=== PATIENT | male | born 1975 | race Caucasian/White ===

== ENCOUNTER 2022-04-20 16:38 | Inpatient (IN) | payer OTHER ==
[2022-04-20 19:46] VITALS: BMI 26.7
[2022-04-20] MEDS ORDERED: BENZOCAINE/MENTHOL (CHLORASEPTIC ) LOZENGE MM PRN (20:41)
[2022-04-20] MEDS ORDERED: P-EPHED 60MG/TRIPROLIDI 2.5MG TABLET PO PRN (20:41)
[2022-04-20] MEDS ORDERED: MAG HYDROX/AL HYDROX/SIMETH 30 ML UNIT-DOSE CUP PO PRN (20:41)
[2022-04-20] MEDS ORDERED: LOPERAMIDE HCL 2 MG CAPSULE PO PRN (20:41)
[2022-04-20] MEDS ORDERED: MAGNESIUM HYDROX 2400MG/30ML ORAL SUSPENSION 30 ML CUP PO PRN (20:41)
[2022-04-20] MEDS ORDERED: IBUPROFEN 400 MG TABLET (FP) PO PRN (20:41)
[2022-04-20] MEDS ORDERED: MAGNESIUM CITRATE 300 ML BOTTLE PO PRN (20:41)
[2022-04-20] MEDS ORDERED: NICOTINE POLACRILEX 2 MG GUM BC PRN (20:41)
[2022-04-20] MEDS ORDERED: guaiFENesin 200 MG/10 ML 10 ML UNIT-DOSE CUPS PO PRN (20:41)
[2022-04-20] MEDS ORDERED: ACETAMINOPHEN 325 MG TABLET (FP) PO PRN (20:41)
[2022-04-20] MEDS: THIAMINE HCL 100 MG TABLET (FP) PO SCH (23:11)
[2022-04-20] MEDS ORDERED: TUBERCULIN PPD 5 TU/0.1ML VIAL ID ONE ×2 (23:55→23:56)
[2022-04-21] MEDS ORDERED: methaDONE 80 MG, methaDONE 20 MG PO SCH (10:00)
[2022-04-21] MEDS ORDERED: methaDONE HCL 10 MG TABLET PO SCH (10:00)
[2022-04-21] MEDS: PRENATAL VITAMINS W/ FOLIC ACID TABLET (FP) PO SCH (10:08)
[2022-04-21] MEDS: NICOTINE 10 MG CARTRIDGE (INHALER) IH PRN (10:42)
[2022-04-21 15:25] LABS: HEMOGLOBIN 12.9 GM/dL (11.7-16.9); MCH 28.5 pg (25.7-33.7); MEAN CELL VOLUME 86.3 fl (80-96); MEAN PLT VOLUME 8.4 fl (7.5-11.1); PLATELET COUNT 262 10^3/uL (134-434); RBC 4.52 M/mm3 (4.00-5.60); RDW 14.4 % (11.9-15.9); WHITE BLOOD COUNT 7.3 K/mm3 (4.0-10.0)
[2022-04-21 15:26] LABS: PH,URINE 6.5 (5.0-8.0); URINE APPEARANCE CLEAR; URINE BILIRUBIN NEGATIVE (NEGATIVE); URINE COLOR YELLOW; URINE GLUCOSE (UA) NEGATIVE (NEGATIVE); URINE KETONE NEGATIVE (NEGATIVE); URINE LEUK ESTERASE NEGATIVE (NEGATIVE); URINE NITRITE NEGATIVE (NEGATIVE); URINE PROTEIN NEGATIVE (NEGATIVE); URINE UROBILINOGEN 0.2 mg/dL (0.2-1.0)
[2022-04-21 18:01] LABS: ALBUMIN 3.4 g/dl (3.4-5.0); CALCIUM 8.9 mg/dL (8.5-10.1)
[2022-04-21 18:02] LABS: BLOOD UREA NITROGEN 24.4 mg/dL (7-18)
[2022-04-21 18:06] LABS: TOT PROT 6.3 g/dl (6.4-8.2)
[2022-04-21 18:14] LABS: BILIRUBIN,TOTAL 0.3 mg/dL (0.2-1)
[2022-04-21 18:46] LABS: SYPHILIS W/ RPR CONF NON-REACTIVE (NONREACTIVE)
[2022-04-21] MEDS: THIAMINE HCL 100 MG TABLET (FP) PO SCH (22:29)
[2022-04-22] MEDS ORDERED: methaDONE HCL 10 MG TABLET PO SCH (06:00)
[2022-04-22] MEDS: methaDONE 80 MG, methaDONE 20 MG PO SCH (06:16)
[2022-04-22] MEDS: PRENATAL VITAMINS W/ FOLIC ACID TABLET (FP) PO SCH (10:19)
[2022-04-22] MEDS: NICOTINE 10 MG CARTRIDGE (INHALER) IH PRN (10:20)
[2022-04-22] MEDS: hydrOXYzine PAMOATE 25 MG CAPSULE (FP) PO PRN ×2 (12:42→21:19)
[2022-04-22] MEDS: MELATONIN 5 MG TABLETS PO PRN (21:19)
[2022-04-22] MEDS: THIAMINE HCL 100 MG TABLET (FP) PO SCH (21:19)
[2022-04-23] MEDS: methaDONE 80 MG, methaDONE 20 MG PO SCH (06:16)
[2022-04-23] MEDS: hydrOXYzine PAMOATE 25 MG CAPSULE (FP) PO PRN ×2 (10:13→21:23)
[2022-04-23] MEDS: PRENATAL VITAMINS W/ FOLIC ACID TABLET (FP) PO SCH (10:13)
[2022-04-23] MEDS: NICOTINE 10 MG CARTRIDGE (INHALER) IH PRN (10:14)
[2022-04-23] MEDS: THIAMINE HCL 100 MG TABLET (FP) PO SCH (21:22)
[2022-04-23] MEDS: MELATONIN 5 MG TABLETS PO PRN (21:22)
[2022-04-24] MEDS: methaDONE 80 MG, methaDONE 20 MG PO SCH (06:27)
[2022-04-24] MEDS: PRENATAL VITAMINS W/ FOLIC ACID TABLET (FP) PO SCH (09:56)
[2022-04-24] MEDS: hydrOXYzine PAMOATE 25 MG CAPSULE (FP) PO PRN ×2 (09:56→21:30)
[2022-04-24] MEDS: NICOTINE 10 MG CARTRIDGE (INHALER) IH PRN ×3 (09:56→21:31)
[2022-04-24] MEDS: MELATONIN 5 MG TABLETS PO PRN (21:30)
[2022-04-24] MEDS: THIAMINE HCL 100 MG TABLET (FP) PO SCH (21:30)
[2022-04-25] MEDS: methaDONE 80 MG, methaDONE 20 MG PO SCH (06:24)
[2022-04-25] MEDS: PRENATAL VITAMINS W/ FOLIC ACID TABLET (FP) PO SCH (10:23)
[2022-04-25] MEDS: NICOTINE 10 MG CARTRIDGE (INHALER) IH PRN ×2 (10:23→21:33)
[2022-04-25] MEDS: hydrOXYzine PAMOATE 25 MG CAPSULE (FP) PO PRN (21:32)
[2022-04-25] MEDS: THIAMINE HCL 100 MG TABLET (FP) PO SCH (21:32)
[2022-04-25] MEDS: MELATONIN 5 MG TABLETS PO PRN (21:32)
[2022-04-26] MEDS: methaDONE 80 MG, methaDONE 20 MG PO SCH (06:22)
[2022-04-26] MEDS: NICOTINE 10 MG CARTRIDGE (INHALER) IH PRN ×3 (06:25→21:28)
[2022-04-26] MEDS: PRENATAL VITAMINS W/ FOLIC ACID TABLET (FP) PO SCH (10:24)
[2022-04-26] MEDS: MELATONIN 5 MG TABLETS PO PRN (21:28)
[2022-04-26] MEDS: THIAMINE HCL 100 MG TABLET (FP) PO SCH (21:28)
[2022-04-26] MEDS: hydrOXYzine PAMOATE 25 MG CAPSULE (FP) PO PRN (21:28)
[2022-04-27] MEDS: methaDONE 80 MG, methaDONE 20 MG PO SCH (06:23)
[2022-04-27] MEDS: NICOTINE 10 MG CARTRIDGE (INHALER) IH PRN ×3 (06:29→21:04)
[2022-04-27] MEDS: hydrOXYzine PAMOATE 25 MG CAPSULE (FP) PO PRN ×2 (09:35→21:04)
[2022-04-27] MEDS: PRENATAL VITAMINS W/ FOLIC ACID TABLET (FP) PO SCH (09:35)
[2022-04-27] MEDS: MELATONIN 5 MG TABLETS PO PRN (21:04)
[2022-04-27] MEDS: THIAMINE HCL 100 MG TABLET (FP) PO SCH (21:04)
[2022-04-28] MEDS: methaDONE 80 MG, methaDONE 20 MG PO SCH (06:11)
[2022-04-28] MEDS: hydrOXYzine PAMOATE 25 MG CAPSULE (FP) PO PRN ×2 (06:12→21:16)
[2022-04-28] MEDS: NICOTINE 10 MG CARTRIDGE (INHALER) IH PRN ×2 (10:31→21:17)
[2022-04-28] MEDS: PRENATAL VITAMINS W/ FOLIC ACID TABLET (FP) PO SCH (10:31)
[2022-04-28] MEDS: MELATONIN 5 MG TABLETS PO PRN (21:16)
[2022-04-28] MEDS: THIAMINE HCL 100 MG TABLET (FP) PO SCH (21:16)
[2022-04-29] MEDS: methaDONE 80 MG, methaDONE 20 MG PO SCH (06:15)
[2022-04-29] MEDS: NICOTINE 10 MG CARTRIDGE (INHALER) IH PRN ×3 (06:16→21:15)
[2022-04-29] MEDS: PRENATAL VITAMINS W/ FOLIC ACID TABLET (FP) PO SCH (09:56)
[2022-04-29] MEDS: THIAMINE HCL 100 MG TABLET (FP) PO SCH (21:14)
[2022-04-29] MEDS: SUVOREXANT 10 MG TABLET PO PRN (21:15)
[2022-04-30] MEDS: methaDONE 80 MG, methaDONE 20 MG PO SCH (06:16)
[2022-04-30] MEDS: NICOTINE 10 MG CARTRIDGE (INHALER) IH PRN ×3 (06:17→21:08)
[2022-04-30 06:54] VITALS: RESP 16
[2022-04-30] MEDS: PRENATAL VITAMINS W/ FOLIC ACID TABLET (FP) PO SCH (10:24)
[2022-04-30] MEDS: THIAMINE HCL 100 MG TABLET (FP) PO SCH (21:06)
[2022-04-30] MEDS: hydrOXYzine PAMOATE 50 MG CAPSULE (FP) PO PRN (21:06)
[2022-04-30] MEDS: SUVOREXANT 10 MG TABLET PO PRN (21:07)
[2022-05-01] MEDS: methaDONE 80 MG, methaDONE 20 MG PO SCH (06:17)
[2022-05-01] MEDS: NICOTINE 10 MG CARTRIDGE (INHALER) IH PRN ×2 (06:39→21:16)
[2022-05-01] MEDS ORDERED: HYDROCORTISONE 1% TOPICAL CREAM 30 GM TUBE TP PRN (08:33)
[2022-05-01] MEDS: PRENATAL VITAMINS W/ FOLIC ACID TABLET (FP) PO SCH (10:22)
[2022-05-01] MEDS: hydrOXYzine PAMOATE 50 MG CAPSULE (FP) PO PRN (21:16)
[2022-05-01] MEDS: THIAMINE HCL 100 MG TABLET (FP) PO SCH (21:16)
[2022-05-01] MEDS: SUVOREXANT 10 MG TABLET PO PRN (21:18)
[2022-05-02] MEDS: methaDONE 80 MG, methaDONE 20 MG PO SCH (06:30)
[2022-05-02] MEDS: NICOTINE 10 MG CARTRIDGE (INHALER) IH PRN ×2 (06:31→10:37)
[2022-05-02] MEDS: PRENATAL VITAMINS W/ FOLIC ACID TABLET (FP) PO SCH (10:35)
[2022-05-02] MEDS: hydrOXYzine PAMOATE 50 MG CAPSULE (FP) PO PRN ×2 (10:37→21:03)
[2022-05-02] MEDS: THIAMINE HCL 100 MG TABLET (FP) PO SCH (21:03)
[2022-05-02] MEDS: SUVOREXANT 10 MG TABLET PO PRN (21:04)
[2022-05-02] MEDS ORDERED: SUVOREXANT 10 MG TABLET PO PRN (22:00)
[2022-05-03] MEDS: hydrOXYzine PAMOATE 50 MG CAPSULE (FP) PO PRN ×2 (06:33→21:04)
[2022-05-03] MEDS: methaDONE 80 MG, methaDONE 20 MG PO SCH (06:33)
[2022-05-03] MEDS: NICOTINE 10 MG CARTRIDGE (INHALER) IH PRN (06:34)
[2022-05-03] MEDS: PRENATAL VITAMINS W/ FOLIC ACID TABLET (FP) PO SCH (10:09)
[2022-05-03] MEDS: THIAMINE HCL 100 MG TABLET (FP) PO SCH (21:04)
[2022-05-04] MEDS: NICOTINE 10 MG CARTRIDGE (INHALER) IH PRN (06:22)
[2022-05-04] MEDS: methaDONE 80 MG, methaDONE 20 MG PO SCH (06:24)
[2022-05-04 06:50] VITALS: TEMP 97.5
[2022-05-04 09:22] VITALS: BP 130/93; PULSE 75
== END 2022-05-04 09:30 | disposition home or self-care (01) | DRG 895 ==
LOC: YASAS 16:38 → Y3E 20:44
PROVIDERS: ADMIT Allergy & Immunology; ATTEND Psychiatry & Neurology Pain Medicine
PROC: HZ42ZZZ Group Counseling for Substance Abuse Treatment, Cognitive-Behavioral (ICD-10-PCS; principal; 2022-04-20)
DX: F11.20 Opioid dependence, uncomplicated (principal); F14.20 Cocaine dependence, uncomplicated; F19.280 Other psychoactive substance dependence with psychoactive substance-induced anxiety disorder; F19.282 Other psychoactive substance dependence with psychoactive substance-induced sleep disorder; F17.210 Nicotine dependence, cigarettes, uncomplicated; M19.041 Primary osteoarthritis, right hand; M19.042 Primary osteoarthritis, left hand
CPT/HCPCS: 36415; 80053; 81003; 82962; 85027; 86780; 86803; 87811; C9803-CS; U0003; U0005

== ENCOUNTER 2023-01-05 02:41 | Emergency (ER) | payer OTHER ==
[2023-01-05 02:59] VITALS: BMI 25.9
[2023-01-05] MEDS ORDERED: ACETAMINOPHEN 1000 MG/100 ML BAG IVPB ONE (03:34)
[2023-01-05] MEDS ORDERED: VANCOMYCIN/WATER 1250 MG 1,250 MG/250 ML BAG IVPB ONE ×2 (04:12→05:03)
[2023-01-05] MEDS ORDERED: PIPERACILLIN/TAZOB 3.375 GM 3.375 GM in DEXTROSE 5%-WATER - 50 ML IVPB ONE (04:12)
[2023-01-05 04:20] LABS: BASO % 0.6 % (0-2.0); EOS % 0.5 % (0-4.5); HEMATOCRIT 34.5 % (35.4-49); HEMOGLOBIN 11.5 GM/dL (11.7-16.9); LYMPH % 14.2 % (8-40); MCH 27.7 pg (25.7-33.7); MCHC 33.2 g/dl (32.0-35.9); MEAN CELL VOLUME 83.4 fl (80-96); MEAN PLT VOLUME 7.6 fl (7.5-11.1); MONO % 10.8 % (3.8-10.2); NEUT % 73.9 % (42.8-82.8); PLATELET COUNT 365 10^3/uL (134-434); RBC 4.14 M/mm3 (4.00-5.60); RDW 13.5 % (11.9-15.9); WHITE BLOOD COUNT 16.6 K/mm3 (4.0-10.0)
[2023-01-05 04:43] LABS: POTASSIUM 5.1 mmol/L (3.5-5.1)
[2023-01-05 04:45] LABS: CALCIUM 9.1 mg/dL (8.5-10.1)
[2023-01-05 04:46] LABS: ALBUMIN 3.3 g/dl (3.4-5.0); BLOOD UREA NITROGEN 22.3 mg/dL (7-18)
[2023-01-05 04:50] LABS: TOT PROT 6.9 g/dl (6.4-8.2)
[2023-01-05 04:51] LABS: BILIRUBIN,TOTAL 0.8 mg/dL (0.2-1)
[2023-01-05] MEDS ORDERED: ACETAMINOPHEN INJECTION 100 ML IVPB ONE (05:02)
[2023-01-05] MEDS ORDERED: PIPERACILLIN/TAZOB 3.375 GM 3.375 GM/50 ML BAG IVPB ONE (05:03)
[2023-01-05 05:30] LABS: ERYTHROCYTE SEDIMENTATION RATE 49 mm/hr (0-10)
[2023-01-05 07:15] VITALS: PULSE 75; RESP 16
[2023-01-05 07:52] VITALS: BP 111/64
[2023-01-05 08:54] VITALS: TEMP 99
== END 2023-01-05 08:30 | disposition short-term general hospital (02) ==
LOC: JER 02:41
PROC: 3E03329 Introduction of Other Anti-infective into Peripheral Vein, Percutaneous Approach (ICD-10-PCS; principal; 2023-01-05)
PROC: 3E03329 Introduction of Other Anti-infective into Peripheral Vein, Percutaneous Approach (ICD-10-PCS; 2023-01-05)
PROC: 3E033GC Introduction of Other Therapeutic Substance into Peripheral Vein, Percutaneous Approach (ICD-10-PCS; 2023-01-05)
DX: L03.113 Cellulitis of right upper limb (principal); L02.413 Cutaneous abscess of right upper limb; Z20.822 Contact with and (suspected) exposure to COVID-19
CPT/HCPCS: 36415; 73090-TC-RT-FY; 73130-TC-RT-FY; 80053; 85025; 85651; 86140; 87040; 87635; 93005; 93010; 99285-25

== ENCOUNTER 2023-05-13 18:16 | Inpatient (IN) | payer OTHER ==
[2023-05-13 18:55] VITALS: BMI 25.4
[2023-05-13] MEDS ORDERED: BENZOCAINE/MENTHOL (CHLORASEPTIC ) LOZENGE MM PRN (22:30)
[2023-05-13] MEDS ORDERED: DICYCLOMINE HCL 10 MG CAPSULE PO PRN (22:30)
[2023-05-13] MEDS ORDERED: NICOTINE POLACRILEX 2 MG GUM BUC PRN (22:30)
[2023-05-13] MEDS ORDERED: P-EPHED 60MG/TRIPROLIDI 2.5MG TABLET PO PRN (22:30)
[2023-05-13] MEDS ORDERED: NALOXONE HCL (KLOXXADO) 8 MG SPRAY NS PRN (22:30)
[2023-05-13] MEDS ORDERED: methaDONE HCL 10 MG TABLET (FOR DETOX USE ONLY) PO ONE (22:30)
[2023-05-13] MEDS ORDERED: BENZONATATE 200 MG CAPSULE PO PRN (22:30)
[2023-05-13] MEDS ORDERED: MAGNESIUM HYDROX 2400MG/30ML ORAL SUSPENSION 30 ML CUP PO PRN (22:30)
[2023-05-13] MEDS ORDERED: POLYETHYLENE GLYCOL (HEALTHYLAX) 3350 17 GM PACKET PO PRN (22:30)
[2023-05-13] MEDS ORDERED: BISMUTH SUBSALICYLATE 524 MG/30 ML PO PRN (22:30)
[2023-05-13] MEDS ORDERED: guaiFENesin 600 MG TABLET.ER (FP) PO PRN (22:30)
[2023-05-13] MEDS ORDERED: LOPERAMIDE HCL 2 MG CAPSULE PO PRN (22:30)
[2023-05-13] MEDS ORDERED: MAG HYDROX/AL HYDROX/SIMETH 30 ML UNIT-DOSE CUP PO PRN (22:30)
[2023-05-13] MEDS ORDERED: NALOXONE HCL 0.4 MG/ML VIAL IM PRN (22:30)
[2023-05-13] MEDS ORDERED: IBUPROFEN 400 MG TABLET (FP) PO PRN (22:30)
[2023-05-13] MEDS ORDERED: ONDANSETRON *ODT* 4 MG TABLET SL PRN (22:30)
[2023-05-13] MEDS ORDERED: ACETAMINOPHEN 325 MG TABLET (FP) PO PRN (22:30)
[2023-05-13] MEDS ORDERED: methaDONE HCL 10 MG TABLET (FOR DETOX USE ONLY) ONE (23:02)
[2023-05-14] MEDS: PRENATAL VITAMINS W/ FOLIC ACID TABLET (FP) PO SCH (09:43)
[2023-05-14] MEDS: METHOCARBAMOL 500 MG TABLET PO PRN ×2 (09:43→22:22)
[2023-05-14] MEDS: cloNIDine HCL 0.1 MG TABLET PO PRN ×3 (09:44→22:22)
[2023-05-14] MEDS: IBUPROFEN 600 MG TABLET (FP) PO PRN ×2 (09:46→16:50)
[2023-05-14 12:10] LABS: HEMATOCRIT 39.8 % (35.4-49); HEMOGLOBIN 13.4 GM/dL (11.7-16.9); MCH 27.8 pg (25.7-33.7); MCHC 33.6 g/dl (32.0-35.9); MEAN CELL VOLUME 82.8 fl (80-96); MEAN PLT VOLUME 8.3 fl (7.5-11.1); PLATELET COUNT 389 10^3/uL (134-434); RBC 4.81 M/mm3 (4.00-5.60); RDW 13.6 % (11.9-15.9); WHITE BLOOD COUNT 6.1 K/mm3 (4.0-10.0)
[2023-05-14 12:11] LABS: CHLORIDE 104 mmol/L (98-107)
[2023-05-14 12:17] LABS: CALCIUM 9.6 mg/dL (8.5-10.1)
[2023-05-14 12:18] LABS: ALBUMIN 3.6 g/dl (3.4-5.0); BLOOD UREA NITROGEN 17.7 mg/dL (7-18); CO2 27 mmol/L (21-32); GLUCOSE,RANDOM 133 mg/dL (74-106)
[2023-05-14 12:19] LABS: SGPT/ALT 37 U/L (13-61)
[2023-05-14 12:20] LABS: CREATININE 1.1 mg/dL (0.55-1.3)
[2023-05-14 12:21] LABS: BILIRUBIN,TOTAL 0.6 mg/dL (0.2-1); SGOT/AST 36 U/L (15-37); TOT PROT 7.5 g/dl (6.4-8.2)
[2023-05-14 12:22] LABS: ALK PHOS 143 U/L (45-117)
[2023-05-14 12:26] LABS: ANION GAP 6 mmol/L (4-13); POTASSIUM 4.3 mmol/L (3.5-5.1); SODIUM 137 mmol/L (136-145)
[2023-05-14] MEDS: MELATONIN 5 MG TABLETS PO SCH (22:22)
[2023-05-14] MEDS: THIAMINE HCL 100 MG TABLET (FP) PO SCH (22:22)
[2023-05-15] MEDS: METHOCARBAMOL 500 MG TABLET PO PRN ×3 (05:11→21:31)
[2023-05-15] MEDS: cloNIDine HCL 0.1 MG TABLET PO PRN ×3 (05:12→21:31)
[2023-05-15] MEDS ORDERED: methaDONE HCL 10 MG TABLET (FOR DETOX USE ONLY) PO ONE (10:00)
[2023-05-15] MEDS: PRENATAL VITAMINS W/ FOLIC ACID TABLET (FP) PO SCH (10:05)
[2023-05-15] MEDS: IBUPROFEN 600 MG TABLET (FP) PO PRN (15:20)
[2023-05-15] MEDS: THIAMINE HCL 100 MG TABLET (FP) PO SCH (21:31)
[2023-05-15] MEDS: MELATONIN 5 MG TABLETS PO SCH (21:31)
[2023-05-16] MEDS: METHOCARBAMOL 500 MG TABLET PO PRN (05:20)
[2023-05-16] MEDS: IBUPROFEN 600 MG TABLET (FP) PO PRN (05:20)
[2023-05-16 09:18] VITALS: BP 145/83; PULSE 68; RESP 16; TEMP 97.3
[2023-05-16] MEDS: PRENATAL VITAMINS W/ FOLIC ACID TABLET (FP) PO SCH (10:25)
[2023-05-17] MEDS ORDERED: methaDONE HCL 10 MG TABLET (FOR DETOX USE ONLY) PO ONE (10:00)
== END 2023-05-16 08:45 | disposition left against medical advice (07) | DRG 770 ==
LOC: YASAS 18:16 → Y6N 22:35
PROVIDERS: ADMIT Allergy & Immunology; ATTEND Surgery
PROC: HZ2ZZZZ Detoxification Services for Substance Abuse Treatment (ICD-10-PCS; principal; 2023-05-13)
DX: F11.23 Opioid dependence with withdrawal (principal); F14.20 Cocaine dependence, uncomplicated; F17.210 Nicotine dependence, cigarettes, uncomplicated
CPT/HCPCS: 36415; 80053; 80307; 83036; 85027; 86780; 87635